=== PATIENT | male | born 1980 | race Two or more races ===

== ENCOUNTER 2017-11-09 10:56 | Emergency (ER) | payer OTHER ==
[2017-11-09] MEDS: KETOROLAC TROMETHAMINE 60 MG/2 ML (IM) VIAL IM (13:38)
== END 2017-11-09 13:55 | disposition home or self-care (01) ==
LOC: PHEFT 10:56
DX: S79.921A Unspecified injury of right thigh, initial encounter (principal); X58.XXXA Exposure to other specified factors, initial encounter; Y93.61 Activity, american tackle football; Y92.9 Unspecified place or not applicable; Y99.9 Unspecified external cause status
CPT/HCPCS: 96372; 99284-25